=== PATIENT | male | born 1945 | race Caucasian/White ===

== ENCOUNTER 2020-04-04 06:28 | Day surgery (SDC) | payer OTHER ==
[~2020-04-04] VITALS: Ht 177.8 cm; Wt 86.2 kg
[2020-04-04] MEDS ORDERED: SYNTHROID125 MCG PO (06:46)
[2020-04-04] MEDS ORDERED: MULTIVITAMINS1 EAC7 PO (06:47)
[2020-04-04] MEDS ORDERED: FLOMAX0.4 MG PO (06:47)
[2020-04-04] MEDS ORDERED: SYNTHROID137 MCG PO (06:47)
--- NOTE | 2020-04-04 08:23 | NUR ---
04/04/20 0823 Alba Forte 0816 PT ARRIVED TO PACU ON 2L VIA NC, PT WAKES AND IS REORIENTED TO PACU AND EASILY FALLS BACK TO SLEEP. BP DECREASED AND FLUIDS INCREASED. RESP EVEN AND UNLABORED.
--- NOTE | 2020-04-04 09:50 | NUR ---
PT ALERT, ORIENTED AND HAS HAD PREVIOUS SCOPE. PT HAD FEW QUESTIONS, S.O. PATY PRESENT AND WILL REMAIN TO TAKE PT HOME AFTER DC. GAVE BLESSING, PT DECLINED PRAYER AT THIS TIME
--- NOTE | 2020-04-05 10:47 | PATH ---
[facility] [address] [place], [place] [address] Signed SPECIMEN(S): A RECTO SIGMOID POLYP SPECIMEN(S): B RIGHT COLON POLYP SPECIMEN(S): C HEPATIC FLEXURE POLYP SPECIMEN(S): D RECTAL POLYP SPECIMEN SOURCE: A. RECTO SIGMOID POLYP B. RIGHT COLON POLYP C. HEPATIC FLEXURE POLYP D. RECTAL POLYP CLINICAL HISTORY: History hyperplastic polyps. Post-op diagnosis: Polyps x 4, diverticulosis. MICROSCOPIC DESCRIPTION: Histologic sections of all submitted blocks are examined by light microscopy. These findings, together with the gross examination, support the pathologic diagnosis. FINAL PATHOLOGIC DIAGNOSIS: A. Colon, rectosigmoid, polyp, polypectomy: - Hyperplastic polyp. - Negative for dysplasia or malignancy. B. Colon, right, polyp, polypectomy: - Tubular adenoma. - Negative for high-grade dysplasia or malignancy. C. Colon, hepatic flexure, polyp, polypectomy: - Fragments of tubular adenoma. - Negative for high-grade dysplasia or malignancy. D. Rectum, polyp, polypectomy: - Hyperplastic polyp. - Negative for dysplasia or malignancy. NAL:cml:C2NR GROSS DESCRIPTION: Four specimens are received in four containers, labeled "CR." A. The specimen, labeled "CR," and designated on the requisition "rectosigmoid polypectomy," is received in formalin and consists of one fragment pink-walker tissue (0.4 x 0.2 x 0.2 cm). The specimen is submitted entirely in cassette (A1). B. The specimen, labeled "CR," and designated on the requisition "right colon polypectomy," is received in formalin and consists of one fragment pink-walker PATIENT NAME: KARLA AVENDANO PATHOLOGY DATE OF : 47 REPORT #: [id number] PHYSICIAN: ARI SANTORO PCP: DARRYN OTTO MD REPORT IS CONFIDENTIAL AND NOT TO BE RELEASED WITHOUT AUTHORIZATION [facility] [address] [place], [place] [address] Signed tissue (0.6 x 0.3 x 0.2 cm). The specimen is submitted entirely in cassette (B1). C. The specimen, labeled "CR," and designated on the requisition "hepatic flexure polypectomy," is received in formalin and consists of two fragments of pink-walker tissue (0.5 x 0.2 x 0.2 cm in aggregate). The specimen is submitted entirely in cassette (C1). D. The specimen, labeled "CR," and designated on the requisition "rectal polypectomy," is received in formalin and consists of one fragment of pink-walker tissue (0.3 x 0.3 x 0.3 cm). The specimen is submitted entirely in cassette (D1). AC (under the direct supervision of a pathologist) The Gross Description was prepared using a voice recognition system. The report was reviewed for accuracy; however, sound-alike word errors, addition and/or deletions may occur. If there is any question about this report, please contact Client Services. PERFORMING LABORATORY: The technical component was performed by [facility], [address] [place] [id number] (Party Plan Sales Consultant: Samantha Rockwell MD; CLIA# [id number]). [facility], [address] [place] [id number] (CLIA# [id number]). Diagnostician: Colleen Santiago MD Pathologist Electronically Signed 04/05/2020 Copies: ~ PATIENT NAME: KARLA AVENDANO PATHOLOGY DATE OF : 47 REPORT #: [id number] PHYSICIAN: ARI PATHOLOGY PCP: DARRYN OTTO MD REPORT IS CONFIDENTIAL AND NOT TO BE RELEASED WITHOUT AUTHORIZATION
--- NOTE | 2020-04-06 16:02 | OR ---
[facility] [address] [place], [place] [address] Signed DATE OF OPERATION: 04/04/2020 SURGEON: Leroy Mendez MD PREOPERATIVE DIAGNOSIS: History of hyperplastic polyps 10 years ago. POSTOPERATIVE DIAGNOSIS: Polyps x4 at least 2 probably hyperplastic. PROCEDURE: Total colonoscopy to cecum with cold snare polypectomy x2 and cold morcellation polypectomy x2. ANESTHESIA: Intravenous sedation, fentanyl 100 mcg and Versed 5 mg total. INDICATION: This 74-year-old white man is a patient of Darryn Thornton MD at [facility]. He underwent colonoscopy 10 years ago by me where he was found to have hyperplastic polyps. He is symptom free and has no family history of colon cancer. He is here for surveillance colonoscopy. He understands the risks of bleeding, infection, and perforation, and wished to proceed. FINDINGS: The prep was excellent. Complete colonoscopy was undertaken to the cecum without problem and 4 polyps in total, all excised completely. DESCRIPTION OF PROCEDURE: The patient was brought to the endoscopy suite and placed in lateral decubitus position, given intravenous sedation to the point of slurred speech and nystagmus. Digital rectal examination was normal. An Olympus video colonoscope was passed in the rectum and manipulated throughout the colon ultimately intubating the cecum itself. The ileocecal valve and appendiceal orifice were well identified. The scope was withdrawn. In the proximal ascending colon, there was a small polyp, which was excised with cold morcellation technique. The scope was further withdrawn and at about the hepatic flexure, there was another similar such polyp. This was excised with cold snare polypectomy technique without problem. Further withdrawal of scope showed few diverticula of the sigmoid and rectosigmoid. Electronically Signed By: LEROY MENDEZ MD 04/06/20 1602 PATIENT NAME: KARLA AVENDANO OPERATIVE REPORT DATE OF : 47 REPORT #: [id number] PHYSICIAN: LEROY MENDEZ MD PCP: DARRYN THORNTON MD REPORT IS CONFIDENTIAL AND NOT TO BE RELEASED WITHOUT AUTHORIZATION [facility] [address] [place], [place] [address] Signed There was a polyp at the rectosigmoid junction, which was excised with cold snare technique. There was another polyp in the low rectum, which was excised with cold morcellation technique, it was probably hyperplastic. The scope was removed and the patient was taken to the recovery room in good condition. CONCLUDING DIAGNOSIS: Polyps x4 and minimal diverticulosis. PLAN: Recommend a repeat colonoscopy in 5 years if adenomatous polyp was identified, 10 years if hyperplastic if clinically appropriate for age of 84 years at that time. MD LORETTA Joseph/JOHNNY /[id number] cc: Darryn Thornton MD Copies: DARRYN THORNTON MD ~ Electronically Signed By: LEROY MENDEZ MD 04/06/20 1602 PATIENT NAME: KARLA AVENDANO OPERATIVE REPORT DATE OF : 47 REPORT #: [id number] PHYSICIAN: LEROY MENDEZ MD PCP: DARRYN THORNTON MD REPORT IS CONFIDENTIAL AND NOT TO BE RELEASED WITHOUT AUTHORIZATION
== END 2020-04-04 08:55 | disposition home or self-care (01) ==
LOC: OPS 06:28 → DS 06:28 → OPS 06:30 → DS 06:30 → OPS 08:55
PROVIDERS: ATTEND Surgery
PROC: 0DBL8ZZ Excision of Transverse Colon, Via Natural or Artificial Opening Endoscopic (ICD-10-PCS; 2020-04-04)
PROC: 0DBN8ZZ Excision of Sigmoid Colon, Via Natural or Artificial Opening Endoscopic (ICD-10-PCS; 2020-04-04)
PROC: 0DBP8ZZ Excision of Rectum, Via Natural or Artificial Opening Endoscopic (ICD-10-PCS; 2020-04-04)
PROC: 0DBK8ZZ Excision of Ascending Colon, Via Natural or Artificial Opening Endoscopic (ICD-10-PCS; principal; 2020-04-04 06:30)
DX: Z12.11 Encounter for screening for malignant neoplasm of colon (principal); D12.2 Benign neoplasm of ascending colon; D12.4 Benign neoplasm of descending colon; K62.1 Rectal polyp; K57.30 Diverticulosis of large intestine without perforation or abscess without bleeding; E03.9 Hypothyroidism, unspecified; Z86.010 Personal history of colon polyps; Z91.048 Other nonmedicinal substance allergy status; Z79.899 Other long term (current) drug therapy
CPT/HCPCS: 99153; G0500; J2250; J3010; J7121

== ENCOUNTER 2024-02-07 13:47 | Emergency (ER) | payer OTHER ==
[~2024-02-07] VITALS: Ht 177.8 cm; Wt 86.3 kg
[~2024-02-07 13:47] MED LIST: FLOMAX0.4 MG PO; MULTIVITAMINS1 EAC7 PO; SYNTHROID125 MCG PO; SYNTHROID137 MCG PO
[2024-02-07 14:08] LABS: HEMOGLOBIN 14.3 g/dL (12.0-18.0)
[2024-02-07 14:10] LABS: BASOPHILS 0.9 % (0-2); EOSINOPHILS 3.4 % (0-6); HEMATOCRIT 42.4 % (35.0-50.0); LYMPHOCYTES 28.4 % (24-44); MCH 30.1 (27-36); MCHC 33.6 g/dl (30-36); MCV 89.5 fl (81-99); MONOCYTES 8.7 % (0-12); NEUTROPHILS 58.6 % (39-80); PLATELET COUNT 269 K/uL (140-440); RBC 4.74 M/ul (4.3-5.7); RDW 14.7 (10.5-15.0)
[2024-02-07 14:20] LABS: ALBUMIN 3.5 g/dL (3.4-5.0); ALBUMIN/GLOBULIN RATIO 1.13 (1.1-2.4); ANION GAP 11.2 (7-21); BILIRUBIN, TOTAL 0.4 ng/dL (0.2-1.0); BUN/CREATININE RATIO 14.56 (6.0-28.6); CALCIUM 8.7 mg/dL (8.5-10.1); CREATININE, SERUM 1.03 mg/dL (0.70-1.30); MAGNESIUM 1.9 mg/dL (1.8-2.4); POTASSIUM 4.2 mmol/L (3.5-5.1); PROTEIN, TOTAL 6.6 g/dL (6.4-8.2)
[2024-02-07 16:20] VITALS: BP 109/69
--- NOTE | 2024-02-08 11:40 | EKG ---
[facility] [address] [facility] [place], [place] [address] Signed Normal sinus rhythm Normal ECG No previous ECGs available Confirmed by Asad Casey ([id number]) on 02/08/2024 11:39:49 AM Electronically Signed By: ASAD CASEY MD 02/08/24 1140 PATIENT NAME: KARLA AVENDANO Electrocardiogram DATE OF : 47 PHYSICIAN: ASAD CASEY MD REPORT #: [id number] REPORT IS CONFIDENTIAL AND NOT TO BE RELEASED WITHOUT AUTHORIZATION
== END 2024-02-07 16:20 | disposition home or self-care (01) ==
LOC: ED 13:47
PROVIDERS: Emergency Medicine
DX: R07.2 Precordial pain (principal); Z87.891 Personal history of nicotine dependence; Z79.890 Hormone replacement therapy; Z79.899 Other long term (current) drug therapy
CPT/HCPCS: 36415; 71045; 80053; 83735; 84484; 85025; 93005; 93010; 99285-25

== ENCOUNTER 2024-07-14 12:07 | Day surgery (SDC) | payer MEDICARE, OTHER ==
[~2024-07-14] VITALS: Ht 177.8 cm; Wt 81.8 kg
[~2024-07-14 12:07] MED LIST changes: +IBLOOD GLUCOSE TEST STRIP 1 EA TEST VI PRN; +LACTATED RINGER'S 1,000 ML IV SCH; +LIDOCAINE HCL 1% 5 ML SDV INJ ONE; +MIDAZOLAM HCL 5 MG/5 ML VIAL IV PRN; +fentaNYL citrate 100 MCG/2 ML VIAL IV PRN
[2024-07-14 12:23] VITALS: BP 144/61
[2024-07-14] MEDS ORDERED: OMEPRAZOLE20 MG PO (12:27)
[2024-07-14] MEDS ORDERED: LIPITOR10 MG PO (12:28)
[2024-07-14] MEDS ORDERED: MIDAZOLAM HCL 5 MG/5 ML VIAL ONE (13:56)
[2024-07-14] MEDS ORDERED: fentaNYL citrate 100 MCG/2 ML VIAL ONE (13:56)
--- NOTE | 2024-07-14 15:04 | NUR ---
07/14/24 1504 Maria Fernanda Rm 1500-PATIENT ARRIVED TO PACU ON 3L NC PLACED ON 2L NC RR EVEN. PATIENT DROWSY DENIES PAIN OR NAUSEA. ABDOMEN SOFT ENCOURAGED TO PASS GAS. PATIENT LAYING LEFT LATERAL IVF INFUSING.
[2024-07-14 15:51] VITALS: BP 138/64
--- NOTE | 2024-07-15 12:39 | OR ---
[facility] [address] [place], [place] [address] Signed DATE OF OPERATION: 07/14/2024 SURGEON: Leroy Mendez MD PREOPERATIVE DIAGNOSIS: History of polyps 2019. POSTOPERATIVE DIAGNOSES: 1. Minimal diverticulosis. 2. Polyps x3. PROCEDURE: Total colonoscopy to cecum with cold morcellation polypectomy x1, cold snare polypectomy x2. ANESTHESIA: Intravenous sedation; fentanyl 100 mcg and Versed 5 mg. INDICATION: This 78-year-old white man is a patient of Dr. Thornton at the [facility]. He is known to me from the past having undergone colonoscopy in 2019 at which time he had four polyps excised, two of which were tubular adenomas. He is symptom free currently. He is admitted at this time to undergo colonoscopy. He understands the risk of bleeding, infection, and perforation. FINDINGS: The prep was excellent. Complete colonoscopy was undertaken to the cecum with full intubation of the cecum. There were three polyps, one in the right colon, one in the left and one in the sigmoid, all excised completely. A few scattered diverticula were noted as well. DESCRIPTION OF PROCEDURE: The patient was brought to the endoscopy suite and placed in the lateral decubitus position, given intravenous sedation to the point of slurred speech and nystagmus. Digital rectal examination was normal. An Olympus video colonoscope was passed in the rectum and manipulated throughout the colon ultimately intubating the cecum itself. The ileocecal valve and appendiceal orifice were normal. The scope was withdrawn from that point. In the distal right colon, there was a small polyp which was excised with cold morcellation technique. Electronically Signed By: LEROY MENDEZ MD 07/15/24 1239 PATIENT NAME: KARLA AVENDANO OPERATIVE REPORT DATE OF : 47 REPORT #: [id number] PHYSICIAN: LEROY MENDEZ MD PCP: DARRYN THORNTON MD REPORT IS CONFIDENTIAL AND NOT TO BE RELEASED WITHOUT AUTHORIZATION [facility] [address] [place] [address] Signed Further withdrawal showed another polyp at the left colon which was excised with cold snare polypectomy technique. Specimen was passed for pathology. There was no bleeding. Further withdrawal showed a more broad and flat polyp of the distal sigmoid, which was excised with cold snare polypectomy technique. It was noted that the underlying serosal layer of the colon was present; there was no perforation and the mucosa was excised to the external layer. On that basis, the mucosal defect was secured with interrupted hemoclips with good effect. The scope was further withdrawn and the rectum was normal. Scope was removed and the patient was taken to the recovery room in good condition. CONCLUDING DIAGNOSIS: Polyps x3, minimal diverticula. PLAN: Recommend repeat colonoscopy in 5 years, sooner if symptoms should develop. MD LORETTA Joseph/JOHNNY /[id number] cc: Dr. Thornton, Nahomy Corea MA Copies: ~ Electronically Signed By: LEROY MENDEZ MD 07/15/24 1239 PATIENT NAME: KARLA AVENDANO OPERATIVE REPORT DATE OF : 47 REPORT #: [id number] PHYSICIAN: LEROY MENDEZ MD PCP: DARRYN THORNTON MD REPORT IS CONFIDENTIAL AND NOT TO BE RELEASED WITHOUT AUTHORIZATION
--- NOTE | 2024-07-15 16:43 | PATH ---
[facility] [address] [facility] [place], [place] [address] Signed SPECIMEN(S): A ASCENDING POLYP SPECIMEN(S): B SIGMOID POLYP SPECIMEN(S): C DESCENDING POLYP SPECIMEN SOURCE: A. ASCENDING POLYP B. SIGMOID POLYP C. DESCENDING POLYP CLINICAL HISTORY: History of polyps, diverticula FINAL PATHOLOGIC DIAGNOSIS: A. Ascending polyp: - Tubular adenoma (two fragments). B. Sigmoid polyp: - Hyperplastic polyp (one fragment). C. Descending polyp: - Tubular adenoma (one fragment). JVR:clv MICROSCOPIC EXAMINATION: Histologic sections of all submitted blocks are examined by light microscopy. These findings, together with the gross examination, support the pathologic diagnosis. GROSS DESCRIPTION: A. The specimen, labeled and designated "Kathya, ascending polyp," is received in formalin and consists of three walker soft tissue fragments, ranging from 0.2-0.4 cm. Entirely submitted in (A1). B. The specimen, labeled and designated "Kathya, sigmoid polyp," is received in formalin and consists of one walker soft tissue fragment, 0.6 cm. Entirely submitted in (B1). C. The specimen, labeled and designated "Kathay, descending polyp," is received in formalin and consists of one walker soft tissue fragment, 0.4 cm. Entirely submitted in (C1). VB (under the direct supervision of a pathologist) The Gross Description was prepared using a voice recognition system. The report was reviewed for accuracy; however, sound-alike word errors, addition and/or deletions may occur. If there is any question about this report, please contact Client Services. PATIENT NAME: KARLA AVENDANO PATHOLOGY DATE OF : 47 REPORT #: [id number] PHYSICIAN: ARI SANTORO PCP: DARRYN OTTO MD REPORT IS CONFIDENTIAL AND NOT TO BE RELEASED WITHOUT AUTHORIZATION [address], [place] [address] Signed PERFORMING LABORATORY: Technical component was performed by [facility], [address] [place] [address] (CLIA# [id number]). Professional interpretation was performed by [facility], [address] [place] [id number] (CLIA#: [id number]). Diagnostician: John Philippe MD Pathologist Electronically Signed 07/15/2024 Copies: ~ PATIENT NAME: KARLA AVENDANO PATHOLOGY DATE OF : 47 REPORT #: [id number] PHYSICIAN: ARI SANTORO PCP: DARRYN OTTO MD REPORT IS CONFIDENTIAL AND NOT TO BE RELEASED WITHOUT AUTHORIZATION
== END 2024-07-14 16:00 | disposition home or self-care (01) ==
LOC: DS 12:07
PROVIDERS: ATTEND Surgery
PROC: 0DBN8ZZ Excision of Sigmoid Colon, Via Natural or Artificial Opening Endoscopic (ICD-10-PCS; 2024-07-14)
PROC: 0DBF8ZZ Excision of Right Large Intestine, Via Natural or Artificial Opening Endoscopic (ICD-10-PCS; 2024-07-14)
PROC: 0DBG8ZZ Excision of Left Large Intestine, Via Natural or Artificial Opening Endoscopic (ICD-10-PCS; principal; 2024-07-14 13:00)
DX: Z12.11 Encounter for screening for malignant neoplasm of colon (principal); D12.2 Benign neoplasm of ascending colon; D12.4 Benign neoplasm of descending colon; K63.5 Polyp of colon; K57.30 Diverticulosis of large intestine without perforation or abscess without bleeding; E89.0 Postprocedural hypothyroidism; G47.30 Sleep apnea, unspecified; Z86.0101 Personal history of adenomatous and serrated colon polyps; Z79.890 Hormone replacement therapy; Z79.82 Long term (current) use of aspirin; Z91.030 Bee allergy status; Z91.09 Other allergy status, other than to drugs and biological substances
CPT/HCPCS: 88305; 99153; G0500; J2250; J3010; J7121